=== PATIENT | female | born 1940 | race Caucasian/White ===

== ENCOUNTER 2017-08-24 03:50 | Inpatient (IN) | payer MEDICARE ==
[~2017-08-24 03:50] MED LIST: ATOR10TA15 PO; FLUT50SP EACH NARE; FOSA70TA PO; GABA100C4 PO; HYDR-3366 PO; HYDR12.57 PO; LEVO25TA4 PO; MACR100C2 PO; MAGN400T2 PO; MECL-62 PO; MELO7.5T27 PO; METF500T PO; METO25TA3 PO; MILN100 PO; NORT25CA PO; RAMI5CAP PO; TEMA15CA PO; ZANA4CAP PO
[2017-08-24] MEDS ORDERED: SODIUM CHLORIDE 0.9% FLUSH 10 ML FLUSH IV FLUSH PRN (05:30)
[2017-08-24] MEDS ORDERED: ACETAMINOPHEN/HYDROcodone 325 MG/10 MG TAB PO PRN (05:30)
[2017-08-24] MEDS: RESP: ALBUTEROL 2.5 MG/IPRATROPIUM 0.5 MG NEB (SCH) INH ×7 (08:00→21:11)
[2017-08-24] MEDS ORDERED: methylPREDNISolone SOD SUCC 40 MG/1 ML VIAL IV PUSH SCH (09:00)
[2017-08-24 11:10] VITALS: BP 138/77; PULSE 115; RESP 18; TEMP 98; O2SAT 96
[2017-08-24] MEDS: ENOXAPARIN SODIUM 40 MG/0.4 ML SYRINGE SQ SCH (12:04)
[2017-08-24] MEDS: SODIUM CHLORIDE 0.9% FLUSH 10 ML FLUSH IV FLUSH SCH ×2 (12:04→21:06)
[2017-08-24] MEDS ORDERED: MECLIZINE HCL 25 MG TAB PO PRN (13:15)
[2017-08-24] MEDS ORDERED: TEMAZEPAM 15 MG CAP PO PRN (13:15)
[2017-08-24] MEDS ORDERED: GLUCAGON 1 MG/ML VIAL OTHER PRN (13:15)
[2017-08-24] MEDS ORDERED: DEXTROSE 50% IN WATER 50 ML VIAL(D50) IV PUSH PRN (13:15)
--- NOTE | 2017-08-24 13:57 | HHI.HP ---
[facility] Primary Care Physician Edwin Camargo MD Admission Diagnosis Diagnoses: Chief Complaint: sob Travel History International Travel<30 Days: No Contact w/Intl Traveler <30 Da: No Traveled to Known Affected Are: No History of Present Illness This patient is a 76-year-old female with known history of COPD and coronary artery disease. Patient comes in with increased shortness of breath and increased work of breathing with chest tightness worse with breathing. She was hypoxemic in the emergency room 84-88%. She does not take alcohol at home. Patient did well with steroids and oxygen and nebulized bronchodilators it was recommended to be observed in the hospital for acute respiratory failure Review of Systems Constitutional: DENIES: Diaphoretic episodes, Fatigue, Fever, Weight gain, Weight loss, Chills, Dizziness, Change in appetite, Night Sweats Endocrine: DENIES: Abnorml menstrual pattern, Heat/cold intolerance, Polydipsia , Polyuria, Polyphagia Eyes: DENIES: Blurred vision, Diplopia, Eye inflammation, Eye pain, Vision loss , Photosensitivity, Double Vision Ears, nose, mouth, throat: DENIES: Tinnitus, Hearing loss, Vertigo, Nasal discharge, Oral lesions, Throat pain, Hoarseness, Ear Pain, Running Nose, Epistaxis, Sinus Pain, Toothache, Odynophagia Respiratory: COMPLAINS OF: Shortness of breath, DENIES: Apneas, Cough, Snoring , Wheezing, Hemoptysis, Sputum production Cardiovascular: DENIES: Chest pain, Palpitations, Syncope, Dyspnea on Exertion , PND, Lower Extremity Edema, Orthopnea, Claudication Gastrointestinal: DENIES: Abdominal pain, Black stools, Bloody stools, Constipation, Diarrhea, Nausea, Vomiting, Difficulty Swallowing, Anorexia Genitourinary: DENIES: Abnormal vaginal bleeding, Dysmenorrhea, Dyspareunia, Sexual dysfunction, Urinary frequency, Urinary incontinence, Urgency, Hematuria , Dysuria, Nocturia, Vaginal discharge Musculoskeletal: DENIES: Joint pain, Muscle aches, Stiffness, Joint Swelling, Back pain, Neck pain Integumentary: DENIES: Abnormal pigmentation, Pruritus, Rash, Nail changes, Breast masses, Breast skin changes, Nipple discharge Hematologic/lymphatic: DENIES: Bruising, Lymphadenopathy Immunologic/allergic: DENIES: Eczema, Urticaria Neurologic: DENIES: Abnormal gait, Headache, Localized weakness, Paresthesias, Seizures, Speech Problems, Tremor, Poor Balance Psychiatric: DENIES: Anxiety, Confusion, Mood changes, Depression, Hallucinations, Agitation, Suicidal Ideation, Homicidal Ideation, Delusions Except as stated in HPI: all other systems reviewed are Neg Past Family Social History Past Medical History COPD Coronary artery disease Diabetes Fibromyalgia Hyperlipidemia Recent urinary tract infection Past Surgical History Cardiac bypass Hysterectomy Reported Medications Reviewed in the EMR Allergies: Coded Allergies: baclofen (Verified Allergy, Severe, Nausea/Vomiting, 08/24/17) clonazepam (Verified Allergy, Severe, Psychosis, 08/24/17) oxycodone (Verified Allergy, Severe, Dizziness, 08/24/17) ropinirole (Verified Allergy, Severe, Nausea/Vomiting, 08/24/17) tramadol (Verified Allergy, Severe, Psychosis, 08/24/17) Active Ordered Medications Reviewed in the EMR Family History Hypertension Social History Patient never smoked No alcohol Lives alone Physical Exam Vital Signs Vital Signs Date Time Temp Pulse Resp B/P (MAP) Pulse Ox O2 Delivery O2 Flow Rate FiO2 08/24/17 11:10 98.0 115 18 138/77 (97) 96 Physical Exam GENERAL: This is a well-nourished, well-developed patient, complaining of shortness of breath SKIN: No rashes, ecchymoses or lesions. Cool and dry. HEAD: Atraumatic. Normocephalic. No temporal or scalp tenderness. EYES: Pupils equal round and reactive. Extraocular motions intact. No scleral icterus. No injection or drainage. ENT: Nose without bleeding, purulent drainage or septal hematoma. Throat without erythema, tonsillar hypertrophy or exudate. Uvula midline. Airway patent. NECK: Trachea midline. No JVD or lymphadenopathy. Supple, nontender, no meningeal signs. CARDIOVASCULAR: Regular rate and rhythm without murmurs, gallops, or rubs. RESPIRATORY: Decreased airflow bilaterally, no wheezes GASTROINTESTINAL: Abdomen soft, non-tender, nondistended. No hepato-splenomegaly , or palpable masses. No guarding. MUSCULOSKELETAL: Extremities without clubbing, cyanosis, or edema. No joint tenderness, effusion, or edema noted. No calf tenderness. Negative Homans sign bilaterally. NEUROLOGICAL: Awake and alert. Cranial nerves II through XII intact. Motor and sensory grossly within normal limits. Five out of 5 muscle strength in all muscle groups. Normal speech. Imaging Chest x-ray done at outside facility my review does show no acute cardio pulmonary disease CT of the chest shows emphysema Caprini VTE Risk Assessment Caprini VTE Risk Assessment: Mod/High Risk (score >= 2) Caprini Risk Assessment Model Point Value = 1 Point Value = 2 Point Value = 3 Point Value = 5 Age 41-60 Minor surgery BMI > 25 kg/m2 Swollen legs Varicose veins or History of unexplained or recurrent spontaneous Oral contraceptives or hormone replacement Sepsis (< 1 month) Serious lung disease, including pneumonia (< 1 month) Abnormal pulmonary function Acute myocardial infarction Congestive heart failure (< 1 month) History of inflammatory bowel disease Medical patient at bed rest Age 61-74 Arthroscopic surgery Major open surgery (> 45 min) Laparoscopic surgery (> 45 min) Malignancy Confined to bed (> 72 hours) Immobilizing plaster cast Central venous access Age >= 75 History of VTE Family history of VTE Factor V Leiden Prothrombin [id number] Lupus anticoagulant Anticardiolipin antibodies Elevated serum homocysteine Heparin-induced thrombocytopenia Other congenital or acquired thrombophilia Stroke (< 1 month) Elective arthroplasty Hip, pelvis, or leg fracture Acute spinal cord injury (< 1 month) Prophylaxis Regimen Total Risk Factor Score Risk Level Prophylaxis Regimen 0-1 Low Early ambulation 2 Moderate Order ONE of the following: *Sequential Compression Device (SCD) *Heparin 5000 units SQ BID 3-4 Higher Order ONE of the following medications: *Heparin 5000 units SQ TID *Enoxaparin/Lovenox 40 mg SQ daily (WT < 150 kg, CrCl > 30 mL/min) *Enoxaparin/Lovenox 30 mg SQ daily (WT < 150 kg, CrCl > 10-29 mL/min) *Enoxaparin/Lovenox 30 mg SQ BID (WT < 150 kg, CrCl > 30 mL/min) AND/OR *Sequential Compression Device (SCD) 5 or more Highest Order ONE of the following medications: *Heparin 5000 units SQ TID (Preferred with Epidurals) *Enoxaparin/Lovenox 40 mg SQ daily (WT < 150 kg, CrCl > 30 mL/min) *Enoxaparin/Lovenox 30 mg SQ daily (WT < 150 kg, CrCl > 10-29 mL/min) *Enoxaparin/Lovenox 30 mg SQ BID (WT < 150 kg, CrCl > 30 mL/min) AND *Sequential Compression Device (SCD) Assessment and Plan Problem List: (1) COPD (chronic obstructive pulmonary disease) ICD Code: J44.9 - Chronic obstructive pulmonary disease, unspecified Plan: with hypoxemic resp failure 88% and weakness and shortness of breath Continue with nebulized bronchodilators IV steroids Oxygen as needed (2) CAD (coronary artery disease) ICD Code: I25.10 - Atherosclerotic heart disease of [place] coronary artery without angina pectoris Plan: With a history of cardiac bypass Continue metoprolol and ramipril Code Status Full code Discussed Condition With Patient Caitlyn Zambrano MD Aug 24, 2017 13:57
[2017-08-24] MEDS: GABAPENTIN 100 MG CAP PO SCH ×2 (14:33→21:06)
[2017-08-24] MEDS: MILNACIPRAN 100 MG TAB PO SCH ×2 (14:49→21:07)
[2017-08-24] MEDS ORDERED: METOPROLOL TARTRATE 25 MG TAB PO ONE (15:00)
[2017-08-24] MEDS ORDERED: PILL SPLITTER OTHER PRN (15:00)
[2017-08-24 16:00] VITALS: BP 118/75; PULSE 106; RESP 16; TEMP 98.3; O2SAT 96
[2017-08-24] MEDS: ACETAMINOPHEN/HYDROcodone 325 MG/10 MG TAB PO SCH (17:54)
[2017-08-24] MEDS: INSULIN ASPART SUPPLEMENTAL SCALE SQ SCH ×2 (17:54→21:10)
[2017-08-24] MEDS: methylPREDNISolone SOD SUCC 40 MG/1 ML VIAL IV PUSH SCH (17:55)
--- NOTE | 2017-08-24 18:48 | MB ---
cc: Buster Gasca MD, Arjun D MD DATE: 08/24/[address] Zambrano. REASON FOR CONSULTATION: Shortness of breath and COPD. HISTORY OF PRESENT ILLNESS: Ms. Sun is a pleasant 76-year-old female with history of coronary artery disease, status post CABG, possible congestive heart failure, diabetes mellitus. She has been having shortness of breath for about a month or so, but recently her shortness of breath is getting worse. She did have some swelling in her legs. She did not have any fever or chills, no night sweats. No wheezing. She has no known COPD or emphysema. The patient was brought to the hospital. She had a workup done. Her chest x-ray shows no acute disease. CTA of the chest shows no pulmonary embolism. He has underlying emphysema, has a linear band of atelectasis. Her CBC showed WBC count 12.0, hemoglobin 11.1, hematocrit 34.3, MCV 92, platelets of 246. Sodium is 140, potassium 4.0, chloride 103, CO2 30, BUN 22, creatinine 0.9. BNP is 20. PAST MEDICAL HISTORY: Significant for history of coronary artery disease status post CABG, CHF, diabetes mellitus, fibromyalgia, history of hysterectomy. MEDICATIONS: She is currently taking hydrochlorothiazide 12.5 mg, Mobic 7.5 mg, levothyroxine 25 mcg, Flonase nasal spray, Macrobid 100 mg twice a day, Lopressor 12.5 mg twice a day, ramipril 5 mg twice a day, Pamelor 50 mg a day, Cooks 3 times a day, Solu-Medrol 40 mg q. 6 hours, Lovenox 40 mg a day, hydrocodone for pain. ALLERGIES: ALLERGIC TO BACLOFEN, KLONOPIN, OXYCODONE, AND TRAMADOL. SOCIAL HISTORY: She is a , was a homemaker. No history of smoking or alcohol abuse. FAMILY HISTORY: Has 2 children. REVIEW OF SYSTEMS: The patient lives alone. Normally she is up, around and active. No diagnosed COPD or emphysema. No seizure or epilepsy. No DVT or pulmonary embolus. PHYSICAL EXAMINATION: GENERAL: Elderly female not in any acute distress. VITAL SIGNS: Blood pressure 138/77, heart rate 115, respirations 18, temperature 98, saturation 96% on room air. HEENT: Unremarkable. NECK: Supple. JVD not raised. CHEST: Equal bilaterally, no rhonchi. CARDIOVASCULAR: S1, S2 normal. ABDOMEN: Benign. EXTREMITIES: Trace pedal edema. IMPRESSION: 1. Shortness of breath. She has no history of any smoking; however, CT scan shows underlying emphysema. 2. Coronary artery disease, status post coronary artery bypass grafting. 3. Anxiety disorder. 4. Diabetes mellitus. PLAN: We will get pulmonary function studies along with a bronchodilator. In the meantime, she is getting steroid with good response to it. She will use Flonase nasal spray, albuterol inhaler as needed. She will check the PFT. Further treatment will depend on the course in the hospital. THE cecelia garcia, Dr. Zambrano, for this consultation. MD YUAN Weller//madison , 02:55 PM , 05:55 PM [place]
[2017-08-24] MEDS: FLUTICASONE PROPIONATE 50 MCG/ACT 16 GM NASAL SPRAY EACH NARE SCH (21:06)
[2017-08-24] MEDS: RAMIPRIL 5 MG CAP PO SCH (21:07)
[2017-08-24] MEDS: ATORVASTATIN 10 MG TAB PO SCH (21:07)
[2017-08-24] MEDS: NORTRIPTYLINE HCL 25 MG CAP PO SCH (21:07)
[2017-08-24] MEDS: NITROFURANTOIN MONOHYD MACROCR 100 MG CAP PO SCH (21:07)
[2017-08-24] MEDS: METOPROLOL TARTRATE 25 MG TAB PO SCH (21:07)
[2017-08-24 21:11] VITALS: O2SAT 93
[2017-08-24 22:14] VITALS: BP 136/71; PULSE 97; RESP 18; O2SAT 95
[2017-08-25] VITALS (11 sets, daily range): BP systolic 115–156; BP diastolic 71–92; PULSE 81–108; RESP 16–18; TEMP 97.3–98.7; O2SAT 92–98
[2017-08-25] MEDS: methylPREDNISolone SOD SUCC 40 MG/1 ML VIAL IV PUSH SCH ×4 (00:24→16:56)
[2017-08-25] MEDS: RESP: ALBUTEROL 2.5 MG/IPRATROPIUM 0.5 MG NEB (SCH) INH ×7 (04:00→21:25)
[2017-08-25] MEDS: LEVOTHYROXINE SODIUM 25 MCG TAB PO SCH (06:03)
[2017-08-25 07:31] LABS: BASOPHIL % 0.2 % (0.0-2.0); EOSINOPHIL % 0.1 % (0.0-4.0); HEMOGLOBIN 10.8 GM/DL (11.6-15.3); LYMPH % 5.8 % (9.0-44.0); MEAN CELL VOLUME 88.2 FL (80.0-100.0); MEAN CORPUSCULAR HEMOGLOBIN 28.1 PG (27.0-34.0); MEAN CORPUSCULAR HGB CONC 31.9 % (32.0-36.0); MEAN PLATELET VOLUME 8.1 FL (7.0-11.0); MONOCYTE # 1.2 TH/MM3 (0-0.9); NEUT % 86.9 % (16.0-70.0); PLATELET COUNT 248 TH/MM3 (150-450); RED BLOOD COUNT 3.85 MIL/MM3 (4.00-5.30); WHITE BLOOD COUNT 17.2 TH/MM3 (4.0-11.0)
[2017-08-25 07:48] LABS: BICARBONATE 27.9 MEQ/L (21.0-32.0); CALCIUM 8.9 MG/DL (8.5-10.1)
[2017-08-25 07:52] LABS: CREATININE 0.81 MG/DL (0.50-1.00)
--- NOTE | 2017-08-25 08:40 | HHI.PR ---
Subjective Remarks Patient seen and evaluated today in follow-up for COPD exacerbation No further hypoxemia Patient resting comfortably Objective Vitals Vital Signs Date Time Temp Pulse Resp B/P (MAP) Pulse Ox O2 Delivery O2 Flow Rate FiO2 08/25/17 08:00 97.3 91 18 119/75 (90) 92 08/25/17 04:18 08/25/17 00:43 97.9 88 16 127/72 (90) 96 08/24/17 22:14 97 18 136/71 (92) 95 08/24/17 21:11 93 21 08/24/17 16:00 98.3 106 16 118/75 (89) 96 08/24/17 11:10 98.0 115 18 138/77 (97) 96 I/O 08/24/17 08/24/17 08/24/17 08/25/17 08/25/17 08/25/17 07:00 15:00 23:00 07:00 15:00 23:00 Intake Total 120 ml Balance 120 ml Intake Oral 120 ml # Voids 1 Result Diagram: 08/25/17 0715 08/25/17 0715 Objective Remarks GENERAL: This is a well-nourished, well-developed patient, in no apparent distress. CARDIOVASCULAR: Regular rate and rhythm without murmurs, gallops, or rubs. RESPIRATORY: Clear to auscultation. Breath sounds equal bilaterally. No wheezes , rales, or rhonchi. GASTROINTESTINAL: Abdomen soft, non-tender, nondistended. Normal active bowel sounds MUSCULOSKELETAL: Extremities without clubbing, cyanosis, or edema. NEURO: Alert & Oriented x4 to person, place, time, situation. Moves all ext x4 A/P Problem List: (1) COPD (chronic obstructive pulmonary disease) ICD Code: J44.9 - Chronic obstructive pulmonary disease, unspecified Plan: with hypoxemic resp failure 88% and weakness and shortness of breath Continue with nebulized bronchodilators IV steroids Oxygen as needed Pulmonary consultation appreciate Follow for PFTs (2) CAD (coronary artery disease) ICD Code: I25.10 - Atherosclerotic heart disease of [place] coronary artery without angina pectoris Plan: With a history of cardiac bypass Continue metoprolol and ramipril Discharge Planning Likely discharge in a.m. on oral antibiotics and oral steroid taper Caitlyn Zambrano MD Aug 25, 2017 08:40
[2017-08-25] MEDS: INSULIN ASPART SUPPLEMENTAL SCALE SQ SCH ×4 (08:48→22:14)
[2017-08-25] MEDS: NITROFURANTOIN MONOHYD MACROCR 100 MG CAP PO SCH ×2 (08:57→22:11)
[2017-08-25] MEDS: HYDROCHLOROTHIAZIDE 12.5 MG CAP PO SCH (08:58)
[2017-08-25] MEDS: GABAPENTIN 100 MG CAP PO SCH ×2 (08:58→22:12)
[2017-08-25] MEDS: ACETAMINOPHEN/HYDROcodone 325 MG/10 MG TAB PO SCH ×3 (08:58→16:56)
[2017-08-25] MEDS: ENOXAPARIN SODIUM 40 MG/0.4 ML SYRINGE SQ SCH (08:58)
[2017-08-25] MEDS: MELOXICAM 7.5 MG TAB PO SCH (08:58)
[2017-08-25] MEDS: RAMIPRIL 5 MG CAP PO SCH ×2 (08:59→22:09)
[2017-08-25] MEDS: SODIUM CHLORIDE 0.9% FLUSH 10 ML FLUSH IV FLUSH SCH ×2 (08:59→22:09)
[2017-08-25] MEDS: MILNACIPRAN 100 MG TAB PO SCH ×2 (08:59→22:09)
[2017-08-25] MEDS: FLUTICASONE PROPIONATE 50 MCG/ACT 16 GM NASAL SPRAY EACH NARE SCH ×2 (08:59→22:08)
[2017-08-25] MEDS: METOPROLOL TARTRATE 25 MG TAB PO SCH ×2 (09:00→22:11)
[2017-08-25] MEDS ORDERED: BENZOCAINE-MENTHOL (SUGAR FREE) 15 MG-3.6 MG LOZENGE BUCCAL PRN (17:00)
[2017-08-25] MEDS: ATORVASTATIN 10 MG TAB PO SCH (22:10)
[2017-08-25] MEDS: NORTRIPTYLINE HCL 25 MG CAP PO SCH (22:13)
[2017-08-25] MEDS: NITROGLYCERIN 0.4 MG SL 25 TABS/BTL SL PRN (23:48)
[2017-08-26] VITALS (9 sets, daily range): BP systolic 107–153; BP diastolic 58–80; PULSE 78–106; RESP 16–20; TEMP 97.1–99.5; O2SAT 18–98
[2017-08-26] MEDS: methylPREDNISolone SOD SUCC 40 MG/1 ML VIAL IV PUSH SCH ×4 (00:25→18:00)
[2017-08-26 00:50] LABS: TROPONIN I 0.29 NG/ML (0.02-0.05)
[2017-08-26] MEDS: RESP: ALBUTEROL 2.5 MG/IPRATROPIUM 0.5 MG NEB (SCH) INH ×3 (03:13→22:21)
[2017-08-26] MEDS: LEVOTHYROXINE SODIUM 25 MCG TAB PO SCH (06:12)
[2017-08-26] MEDS: INSULIN ASPART SUPPLEMENTAL SCALE SQ SCH ×4 (08:00→21:00)
[2017-08-26] MEDS ORDERED: RESP: ALBUTEROL 2.5 MG/IPRATROPIUM 0.5 MG NEB (PRN) NEB (08:00)
--- NOTE | 2017-08-26 08:04 | PD.CONS ---
HPI Consult Requested By Primary Care Physician Edwin Camargo MD History of Present Illness 76-year-old female with a past medical history of CAD s/p CABG 08, COPD/ emphysema, HLD, HTN, DM, hypothyroidism, fibromyalgia who presented for chest pain shortness of breath. The patient presented with chest tightness and wheezing and has been treated for COPD exacerbation. Yesterday during hospitalization she had 2 different episodes of chest pain. She states the pain lasted several minutes until it was relieved with nitroglycerin. She states that for the past 2 months she has been having intermittent episodes of chest pain with exertion. Initial troponin on ED evaluation was 0.02, after episodes of chest pain yesterday troponin was checked which was increased at 0.29. EKG at that time with no acute ST changes. (Cory Arreola) Review of Systems Negative except as stated in the HPI (Cory Arreola) Past Family Social History Allergies: Coded Allergies: baclofen (Verified Allergy, Severe, Nausea/Vomiting, 08/24/17) clonazepam (Verified Allergy, Severe, Psychosis, 08/24/17) oxycodone (Verified Allergy, Severe, Dizziness, 08/24/17) ropinirole (Verified Allergy, Severe, Nausea/Vomiting, 08/24/17) tramadol (Verified Allergy, Severe, Psychosis, 08/24/17) Past Medical History COPD Coronary artery disease Diabetes Fibromyalgia Hyperlipidemia Hypothyroidism Past Surgical History CABG 1999 Hysterectomy Reported Medications Reported Meds & Active Scripts Active Reported Macrobid (Nitrofurantoin Monoh/Nitrofur Macro) 100 Mg Cap 100 Mg PO BID Fosamax (Alendronate Sodium) 70 Mg Tab 70 Mg PO Q7D Magnesium Oxide 400 Mg Tab 400 Mg PO DAILY Metformin (Metformin HCl) 500 Mg Tab 500 Mg PO BIDPC [place] (Hydrocodone-Acetaminophen) 10-325 Mg Tab 1 Tab PO TID Fluticasone Nasal [place] 50 Mcg/Act Naspr 50 Mcg EACH NARE BID 50 mcg/spray Zanaflex (Tizanidine HCl) 4 Mg Cap 4 Mg PO HS Atorvastatin (Atorvastatin Calcium) 10 Mg Tab 10 Mg PO HS Nortriptyline (Nortriptyline HCl) 25 Mg Cap 50 Mg PO HS Hydrochlorothiazide 12.5 Mg Cap 12.5 Mg PO DAILY Meloxicam 7.5 Mg Tab 7.5 Mg PO DAILY Levothyroxine (Levothyroxine Sodium) 25 Mcg Tab 25 Mcg PO DAILY Meclizine (Meclizine HCl) 25 Mg Tab 25 Mg PO TID PRN Gabapentin 100 Mg Cap 100 Mg PO BID Savella (Milnacipran) 100 Mg Tab 100 Mg PO BID Metoprolol Tartrate 25 Mg Tab 12.5 Mg PO BID Ramipril 5 Mg Cap 5 Mg PO BID Temazepam 15 Mg Cap 15 Mg PO HS PRN Active Ordered Medications Current Medications Medications (Trade) Dose Ordered Sig/[place] Route Start Time Stop Time Status Last Admin (NS Flush) 2 ml BID IV FLUSH 08/24/17 09:00 08/25/17 22:09 (NS Flush) 2 ml UNSCH PRN IV FLUSH 08/24/17 05:30 (Lovenox Inj) 40 mg Q24H SQ 08/24/17 08:00 08/25/17 08:58 ([place] 10-325 Mg) 1 tab Q8H PRN PO 08/24/17 05:30 08/24/17 13:51 (D50w (Vial) Inj) 50 ml UNSCH PRN IV PUSH 08/24/17 13:15 (Glucagon Inj) 1 mg UNSCH PRN OTHER 08/24/17 13:15 (NovoLOG SUPPLEMENTAL SCALE) 1 ACHS SLIDING SCALE SQ 08/24/17 17:00 08/25/17 22:14 (Lipitor) 10 mg HS PO 08/24/17 21:00 08/25/17 22:10 (Flonase Valeriano Spr) 1 spray BID EACH NARE 08/24/17 21:00 08/25/17 22:08 (Neurontin) 100 mg BID PO 08/24/17 14:00 08/25/17 22:12 (Microzide) 12.5 mg DAILY PO 08/25/17 09:00 08/25/17 08:58 ([place] 10-325 Mg) 1 tab TID PO 08/24/17 18:00 08/25/17 16:56 (Synthroid) 25 mcg DAILY@0600 PO 08/25/17 06:00 08/26/17 06:12 (Antivert) 25 mg TID PRN PO 08/24/17 13:15 (Mobic) 7.5 mg DAILY PO 08/25/17 09:00 08/25/17 08:58 (Lopressor) 12.5 mg BID PO 08/24/17 21:00 08/25/17 22:11 (Savella) 100 mg BID PO 08/24/17 14:00 08/25/17 22:09 (Macrobid) 100 mg BID PO 08/24/17 21:00 08/25/17 22:11 (Pamelor) 50 mg HS PO 08/24/17 21:00 08/25/17 22:13 (Altace) 5 mg BID PO 08/24/17 21:00 08/25/17 22:09 (Restoril) 15 mg HS PRN PO 08/24/17 13:15 08/24/17 21:58 (Zanaflex) 4 mg HS PO 08/24/17 21:00 08/25/17 22:11 (Pill Splitter) 1 ea UNSCH PRN OTHER 08/24/17 15:00 (SoluMEDROL INJ) 40 mg Q6HR IV PUSH 08/24/17 18:00 08/26/17 06:13 (Cepacol Extra Paula (Sugar Free)) 1 lozenge Q2HR PRN BUCCAL 08/25/17 17:00 08/25/17 17:53 (Nitrostat Sl) 0.4 mg Q5M PRN SL 08/25/17 23:45 08/25/17 23:48 (Duoneb Neb) 1 ampule Q6HR WHILE AWAKE NEB INH 08/26/17 08:00 08/26/17 07:43 (Duoneb Neb) 1 ampule Q2HR NEB PRN NEB 08/26/17 08:00 Family History Hypertension Social History Patient never smoked No alcohol Lives alone (Cory Arreola) Physical Exam Vital Signs Vital Signs Date Time Temp Pulse Resp B/P (MAP) Pulse Ox O2 Delivery O2 Flow Rate FiO2 08/26/17 07:48 95 21 08/26/17 04:00 97.1 99 19 121/58 (79) 93 08/26/17 03:13 Nasal Cannula 2.00 08/26/17 00:29 78 107/66 (80) 97 08/25/17 23:51 81 116/76 (89) 95 08/25/17 23:12 105 156/92 (113) 96 08/25/17 21:26 94 21 08/25/17 20:00 98.5 108 18 131/79 (96) 92 08/25/17 20:00 107 08/25/17 16:00 98.7 85 18 124/83 (97) 92 08/25/17 14:59 94 21 08/25/17 13:23 18 08/25/17 12:00 98.3 89 18 115/71 (86) 92 08/25/17 10:12 98 08/25/17 08:00 97.3 91 18 119/75 (90) 92 Physical Exam GENERAL: Well-developed well-nourished. In no acute distress. NECK: No carotid bruits. No JVD. CARDIOVASCULAR: Currently receiving breathing treatment and slightly tachycardic. Regular rhythm. No murmur appreciated. RESPIRATORY: No accessory muscle use. Clear to auscultation. Breath sounds equal bilaterally. No wheezing. MUSCULOSKELETAL: No clubbing or cyanosis. Trace edema. NEUROLOGICAL: Awake and alert. Normal speech. Laboratory Laboratory Tests Test 08/25/17 23:49 08/26/17 07:00 Total Creatine Kinase 82 Troponin I 0.29 (Cory Arreola) Result Diagram: 08/25/17 0715 08/25/17 0715 Assessment and Plan Assessment and Plan 76-year-old female with a past medical history of CAD s/p CABG 08, COPD/ emphysema, HLD, HTN, DM, hypothyroidism, fibromyalgia who presented for chest pain shortness of breath. Episodes of chest pain during admission with increase in troponin to 0.29. NSTEMI: History of CAD with reported increasing episodes of angina over the past 2 months. Troponin has now increased to the intermediate range. We will plan on cardiac catheterization, transfer to the main hospital. Discussed Condition With Patient with daughter at bedside, Dr. Gabriel Argueta (Cory Arreola) Assessment and Plan [facility] - 3 Vz CAD. JON-LAD patent. SVG-OM1 occluded. PCI ELGIN distal LM/ proximal LCx bifurcation. asa plavix bb statin DC planning for tomorrow 2d echo (Minor Lucas MD) Cory Arreola Aug 26, 2017 08:04 Minor Lucas MD Aug 26, 2017 12:16
[2017-08-26 08:10] LABS: TROPONIN I 0.51 NG/ML (0.02-0.05)
[2017-08-26] MEDS: NITROGLYCERIN 0.4 MG SL 25 TABS/BTL SL PRN ×2 (09:21→09:32)
[2017-08-26] MEDS: MILNACIPRAN 100 MG TAB PO SCH ×2 (09:23→21:00)
[2017-08-26] MEDS: FLUTICASONE PROPIONATE 50 MCG/ACT 16 GM NASAL SPRAY EACH NARE SCH ×2 (09:23→21:00)
[2017-08-26] MEDS: ENOXAPARIN SODIUM 40 MG/0.4 ML SYRINGE SQ SCH (09:23)
[2017-08-26] MEDS: RAMIPRIL 5 MG CAP PO SCH ×2 (09:24→21:00)
[2017-08-26] MEDS: HYDROCHLOROTHIAZIDE 12.5 MG CAP PO SCH (09:24)
[2017-08-26] MEDS: NITROFURANTOIN MONOHYD MACROCR 100 MG CAP PO SCH ×2 (09:25→21:00)
[2017-08-26] MEDS: METOPROLOL TARTRATE 25 MG TAB PO SCH ×2 (09:25→21:00)
[2017-08-26] MEDS: MELOXICAM 7.5 MG TAB PO SCH (09:25)
[2017-08-26] MEDS: ACETAMINOPHEN/HYDROcodone 325 MG/10 MG TAB PO SCH ×3 (09:26→18:00)
[2017-08-26] MEDS: SODIUM CHLORIDE 0.9% FLUSH 10 ML FLUSH IV FLUSH SCH ×2 (09:26→21:00)
[2017-08-26] MEDS: GABAPENTIN 100 MG CAP PO SCH ×2 (09:26→21:00)
[2017-08-26] MEDS ORDERED: METOPROLOL TARTRATE 25 MG TAB PO ONE (09:30)
[2017-08-26] MEDS ORDERED: MIDAZOLAM HCL 2 MG/2 ML VIAL ONE ×2 (10:58→11:45)
[2017-08-26] MEDS ORDERED: HEPARIN-NS/PF FLUSH BAG 2,000 ML IV FLUSH ONE (10:58)
--- NOTE | 2017-08-26 11:23 | HHI.PR ---
Subjective Remarks Plan for heart cath today. Transfer to [facility] main for heart cath. SVT present when seen, complaining of chest pain. Objective Vital Signs Date Time Temp Pulse Resp B/P (MAP) Pulse Ox O2 Delivery O2 Flow Rate FiO2 08/26/17 08:00 97.8 98 20 153/80 (104) 98 08/26/17 08:00 106 08/26/17 07:48 95 21 08/26/17 04:00 97.1 99 19 121/58 (79) 93 08/26/17 03:13 Nasal Cannula 2.00 08/26/17 00:29 78 107/66 (80) 97 08/25/17 23:51 81 116/76 (89) 95 08/25/17 23:12 105 156/92 (113) 96 08/25/17 21:26 94 21 08/25/17 20:00 98.5 108 18 131/79 (96) 92 08/25/17 20:00 107 08/25/17 16:00 98.7 85 18 124/83 (97) 92 08/25/17 14:59 94 21 08/25/17 13:23 18 08/25/17 12:00 98.3 89 18 115/71 (86) 92 I/O 08/25/17 08/25/17 08/25/17 08/26/17 08/26/17 08/26/17 07:00 15:00 23:00 07:00 15:00 23:00 Intake Total 1200 ml Balance 1200 ml Intake Oral 1200 ml # Voids 5 3 Result Diagram: 08/25/1715 08/25/17 0715 Objective Remarks GENERAL: NAD, A&Ox3 HEAD: Normocephalic. NECK: Supple, trachea midline. No lymphadenopathy. EYES: No scleral icterus. No injection or drainage. CARDIOVASCULAR: Regular rate and rhythm without murmurs, gallops, or rubs. RESPIRATORY: Breath sounds equal bilaterally. No accessory muscle use. GASTROINTESTINAL: Abdomen soft, non-tender, nondistended. MUSCULOSKELETAL: No cyanosis, or edema. SKIN: Warm and dry. NEURO: No focal neurological deficitis. A/P Problem List: (1) CAD (coronary artery disease) ICD Code: I25.10 - Atherosclerotic heart disease of [place] coronary artery without angina pectoris (2) COPD (chronic obstructive pulmonary disease) ICD Code: J44.9 - Chronic obstructive pulmonary disease, unspecified Assessment and Plan 76-year-old female admitted secondary to respiratory distress and chest pain with a history of coronary artery disease Chest pain Coronary artery disease Cardiac bypass history Plan for heart catheter today Patient is transferred to the main Transfer service to [facility] providers Continue metoprolol COPD Improved Continue steroids Continue nebulized treatments Continue oxygen therapy as needed DVT prophylaxis SCDs Discharge Planning Pending findings of heart Holger Rios MD Aug 26, 2017 11:23
[2017-08-26] MEDS ORDERED: HEPARIN SODIUM - IV 10,000 UNITS/10 ML VIAL ONE (11:41)
[2017-08-26] MEDS ORDERED: CLOPIDOGREL 300 MG TAB ONE (12:09)
--- NOTE | 2017-08-26 12:18 | CATHPROC ---
[employer] HIS Report Study Information Study Number Admission Scheduled Start Study Start [id number] Aug 25 2017 7:14AM 08/26/2017 Aug 26 2017 11:07AM [place] Service Cardiac Catheterization Admit Source Facility Department Transfer in from another acute care facility [facility] - [employer] Physician and Clinical Staff Initial Minor Aguilera Beef Splitter Anand Erazo,RN Beef Splitter Anand Webster RN Recorder Tiki Clark,RT(R) Scrub Iris Peres,SOAKER SODA WORKER TECH2 Procedures Performed Procedure Location (Site) Vessel Name Coronary Angiograms LCA Left Coronary Coronary Angiograms RCA Right Coronary Coronary Angiograms JON Graft Left Coronary Drug Eluting Inflatio Lft Main Left Coronary L Heart Cath PTCA Lft Main Left Coronary PTCA ADD ON'S Wire insertion Fem Art (right) Femoral Art Equipment Time Therapist Physical Description Size Mfg Part Number Used/Scraped COPILOT VALVE, BLEEDBACK [id number] 11:41 [employer] Used CONTROL *[id number] TRANSDUCER, TRUWAVE [id number] 11:16 ADAM COSTA * Used W/STOCKCOCK *[id number] [id number] *[id number] [id number] *[id number] [id number] *[id number] *[id number] 11:16 MEDLINE INDUSTRIES PACK, CCL CUSTOM * Used *[id number] 11:16 MEDLINE PACER PEN, SKIN DUAL W/ RULER * Used *[id number] 11:49 MEDTRONIC BALLOON, 3.0 X 12MM EUPHORA 12MM Used *[id number] BALLOON, 3.75 X 12MM NC [id number] 11:55 MEDTRONIC 12MM Used EUPHORA *[id number] 12:03 MEDTRONIC STENT, 4.0 12MM HREMINIA 4.0 12MM Used *[id number] 11:42 [employer] MEDICAL 30 ADI INDEFLATOR Used *[id number] 11:45 [employer] MEDICAL SHEATH, FR6.5 PRELUDE 11CM FR 6.5 038ACT Used *[id number] 11:16 [employer] MEDICAL WIRE, 3MMJ .035 180CM 180CM Used *[id number] 11:32 [employer] MEDICAL WIRE, EXCHANGE 260CM 3MMJ 260CM Used *[id number] 11:16 NAMIC MANIFOLD, 4 PORT * Used *[id number] 11:16 NYCOMED OMNIPAQUE, 350 MG, 150ML 150ML [id number] Used 11:42 NYCOMED OMNIPAQUE, 350 MG, 150ML 150ML [id number] Used [id number] 11:16 LIMON MEDICAL BLANKET,WARM AIR CCL * Used *[id number] 11:16 TERUMO MEDICAL SHEATH, FR5 TERUMO (10CM) FR 5 Used *[id number] WIRE, RUNTHROUGH NS FLOPPY [id number] 11:41 TERUMO MEDICAL 180CM Used .014 180CM *[id number] Equipment Model, Serial, Lot Number and Expiration Data Description Model Number Serial Number Lot Number Expiration Date BALLOON, 3.0 X 12MM EUPHORA [id number] 01-24-2019 BALLOON, 3.75 X 12MM NC [id number] 11-14-2018 EUPHORA STENT, 4.0 12MM HERMINIA [id number] 12-20-2018 History: Current Medications Medication Dosage/Unit Route Frequency Last Date/Time Taken Synthroid HCTZ Statins (any) LOPRESSOR Glucophage History: Allergies Allergy Reaction oxycodone Dizziness clonazepam Psychosis baclofen Nausea/Vomiting tramadol Psychosis ropinirole Nausea/Vomiting History: Risk Factors Family History of Hypertension Dyslipidemia Previous SD Previous Heart Failure Premature CAD Yes Yes No No No Prior Valve Prior PCI Prior CABG Prior CABGDate Surgery No No Yes 06/03/2007 Cerebrovascular Peripheral Artery Chronic Lung On Dialysis Diabetes Diabetes Therapy Disease Disease Disease No No No No Yes Oral History: Symptoms/Diagnosis Selection Items Chest pain History: Stress Tests Stress or Imaging Studies Performed No History: Other Disease Selection Items CAD History: Other Current Smoker No Labs Hgb (g/dl) Hct (%) RBC (MIL/MM3) WBC (l/cumm) Platelets (thousands) 11.60-17.00 35.00-51.00 4.00-5.90 4.00-11.00 150.00-450.00 11.1 34.3 3.7 12 246 Glucose (mg/dl) BUN (mg/dl) Creatinine (mg/dl) BUN:Creatinine (1:x) 74.00-106.00 7.00-18.00 0.50-1.30 10.00-20.00 102 26 0.9 28.9 Na (meq/l) K (meq/l) Cl (meq/l) CO2 (mmol/L) Ca (mg/dl) 136.00-145.00 3.50-5.10 98.00-107.00 21.00-32.00 8.50-10.10 140 4.7 103 30 9.1 PT (sec) PTT (sec) INR (PTT:PT) 9.80-11.60 24.30-30.10 0.90-1.10 10.1 24.7 1 CPK (u/l) CPK-MB (ng/ML) 26.00-308.00 0.50-3.60 120 1.8 Medication Medication Total Dose (Bolus/Oral) Medication Total Dosage/Unit 1% XYLOCAINE 20 mL FENTANYL 150 mcg HEPARIN 5000 units PLAVIX 600 mg VERSED 2 mg Medications (Bolus/Oral) Medication Time Given Dosage/Unit Administered By Reason VERSED 08/26/2017 11:18:52 AM 1 mg Eleanor, Anand 1 mg VERSED given in lab by Anand Webster RN via Peripheral IV. FENTANYL 08/26/2017 11:19:14 AM 50 mcg Eleanor, Anand 50 mcg FENTANYL given in lab by Anand Webster RN via Peripheral IV. 1% XYLOCAINE 08/26/2017 11:22:55 AM 20 mL Minor Lucas 20 mL 1% XYLOCAINE given in lab by Minor Lucas in Right Groin via Subcutaneous. HEPARIN 08/26/2017 11:44:39 AM 5000 units Eleanor, Anand 5000 units HEPARIN given in lab by Anand Webster RN in Right Antecubital via Peripheral IV. VERSED 08/26/2017 11:47:37 AM 1 mg Eleanor, Anand 1 mg VERSED given in lab by Anand Webster RN via Peripheral IV. FENTANYL 08/26/2017 11:47:41 AM 50 mcg Eleanor, Anand 50 mcg FENTANYL given in lab by Anand Webster RN via Peripheral IV. FENTANYL 08/26/2017 11:58:10 AM 50 mcg Eleanor, Anand 50 mcg FENTANYL given in lab by Anand Webster RN via Peripheral IV. PLAVIX 08/26/2017 12:11:02 PM 600 mg Burfield, Anand 600 mg PLAVIX given in lab by Anand Erazo, RN via Oral. Medication (Drip) Medication Time Given Dosage/Unit Concentration/Unit Diluent (ml) Solution IV Solutions 08/26/2017 11:17:10 AM 0 mL (IV) 500 NaCl .9 Patient arrived on IV Solutions in Right Antecubital via Peripheral IV. Pump/Drip Flow = 20 ml/hr usi ng NaCl .9. Initial Case Assessment Cardiovascular HR Rhythm NIBP Chest Pain 102 REG 153/90 0 Edema Present Skin color Skin None Normal Warm Circulatory - Right Pulses Dorsalis Pedis Femoral 2 2 Scale (0,1,2,3,4,d) Circulatory - Left Pulses Dorsalis Pedis Femoral 2 2 Scale (0,1,2,3,4,d) Circulatory - Lower Extremities Color Lower Right Color Lower Left Normal Normal Neurological State Oriented to time-place- Alert Moves all extremities person Respiration - General Respiration Rate SpO2 (%) (B/min) 12 98 Final Case Assessment Cardiovascular HR Rhythm NIBP Chest Pain 98 REG 133/79 0 Edema Present Skin color Skin None Normal Warm Circulatory - Right Pulses Dorsalis Pedis Femoral 2 2 Scale (0,1,2,3,4,d) Circulatory - Left Pulses Dorsalis Pedis Femoral 2 2 Scale (0,1,2,3,4,d) Circulatory - Lower Extremities Color Lower Right Color Lower Left Normal Normal Neurological State Oriented to time-place- Alert Moves all extremities person Respiration - General Respiration Rate SpO2 (%) (B/min) 9 95 Chronological Log Time Study Chronological Log 10:55:24 Patient arrived via Bed. 10:56:00 Patient Name, D.O.B, / Armband Verified By R.N. 10:57:38 Consent signed by the physician and the patient and verified by the [employer] staff. 11:07:43 Pre-op and post- op instructions given; patient acknowledges understanding of instructions. 11:07:44 Verbal Stimulation=2 Physical Stimulation=2 Airway=2 Respiration=2 TOTAL=8. (0=absent, 1=li mited, 2=present) 11:07:47 Patient has been NPO for Less than 6Hrs. 11:07:48 Skin Breakdown-NONE 11:08:21 Reference ECG taken Vitals capture started with the following parameters, Patient=Adult, Interval=5 min, Initial Pr vmacpo=358 mmHg, 11:08:22 Deflation Rate=5 mmHg, Cuff placed on Right Arm 11:09:34 QU=238 bpm, ZMTW=178/89 mmhg, SpO2=98.0 %, Resp=29 B/min, Pain=0, Prsoper=10, Johnson=2 11:13:55 Pressure channel 1 zeroed. 11:14:05 EY=468 bpm, FFXK=561/90 mmhg, SpO2=97.0 %, Resp=12 B/min, Pain=0, Prosper=10, Johnson=2 11:16:51 A # 20 IV was noted in the Antecubital (right). Grade = 0 11:17:02 A # 20 IV was noted in the Antecubital (left). Grade = 0 11:17:10 Patient arrived on IV Solutions in Right Antecubital via Peripheral IV. Pump/Drip Flow = 20 ml/hr using NaCl .9. 11:17:25 History and physical on the chart or being dictated. Assessment: Initial Case, SW=062 BPM, Rhythm=REG, XDTO=563/90 mmhg, Chest Pain=0, Edema=None, Color=Normal, Skin = Warm Right Pulses: Nikita Ped=2, Femoral=2 Left Pulses: Nikita Ped=2, Femoral=2 11:17:25 Lower Right Extremities: Color=Normal Lower Left Extremities: Color=Normal Neurological: State=Alert, Ox3, SIMS Respiration: Resp=12 B/min, SpO2=98 % 11:18:10 Bilateral groins prepped with 2% chlorhexidine, and draped after a 3 minute waiting time. 11:18:15 MD arrived. 11:18:52 1 mg VERSED given in lab by Anand Webster, RN via Peripheral IV. 11:19:06 TY=688 bpm, TVRU=598/84 mmhg, SpO2=98.0 %, Resp=14 B/min, Pain=0, Prosper=10, Johnson=2 11:19:14 50 mcg FENTANYL given in lab by Anand Webster, RN via Peripheral IV. Time Out. Correct patient, correct procedure, correct physician, power injector not loaded with contrast with surgical 11:19:31 team present. Time Out Concurred by MD and individual staff in procedure. 11:20:20 Case Start 11:20:22 Verbal Stimulation=2 Physical Stimulation=2 Airway=2 Respiration=2 TOTAL=8. (0=absent, 1=li mited, 2=present) 11:22:55 20 mL 1% XYLOCAINE given in lab by Minor Lucas in Right Groin via Subcutaneous. 11:24:03 HR=98 bpm, ZRBR=639/75 mmhg, SpO2=92.0 %, Resp=9 B/min, Pain=0, Prosper=10, Johnson=2 A JR 4.0 INFINITI CATHETER FR 6 was advanced over a wire. OMNIPAQUE, 350 MG, 150ML 150ML was us ed for 11:27:47 injections. Recorded Pressure: LV, HR=98, Condition=Condition 1 11:28:08 (Left Ventricle) LV 143/-2/13 Recorded Pressure: LV, Ao, HR=99, Condition=Condition 1 11:28:28 (Left Ventricle) LV 138/-2/15, (Aorta) Ao 120/59/87 11:29:01 The RCA was injected and visualized at various angles. OMNIPAQUE, 350 MG, 150ML 150ML used . 11:29:06 HR=98 bpm, UDFU=591/75 mmhg, SpO2=90.0 %, Resp=13 B/min, Pain=0, Prosper=10, Johnson=2 After removing the current catheter a SOWMYA INFINITI CATHETER FR 6 was advanced over a WIRE, EXCH LORENE 260CM 11:31:49 3MMJ 260CM. 11:34:03 PB=433 bpm, OSRO=005/87 mmhg, SpO2=93.0 %, Resp=19 B/min, Pain=0, Prosper=10, Johnson=2 11:35:44 The JON Graft was injected and visualized at various angles. OMNIPAQUE, 350 MG, 150ML 150M L used. After removing the current catheter a JL 4.0 INFINITI CATHETER FR 6 was advanced over a WIRE, E XCHANGE 260CM 11:36:49 3MMJ 260CM. 11:39:04 CG=959 bpm, DPMP=474/83 mmhg, SpO2=93.0 %, Resp=18 B/min, Pain=0, Prosper=10, Johnson=2 11:39:07 Catheter was removed 11:41:52 OMNIPAQUE, 350 MG, 150ML 150ML and 30 ADI INDEFLATOR added. 11:44:05 DS=743 bpm, XOXR=406/84 mmhg, SpO2=92.0 %, Resp=21 B/min, Pain=0, Prosper=10, Johnson=2 A SHEATH, FR6.5 PRELUDE 11CM FR 6.5 was exchanged in the Fem Art (right). This was necessary in order to 11:44:15 accomodate a larger catheter. 11:44:39 5000 units HEPARIN given in lab by Anand Webster RN in Right Antecubital via Peripheral IV. A XB 3.5 GUIDE CATHETER FR 6 was advanced over a wire. OMNIPAQUE, 350 MG, 150ML 150ML was used for 11:45:28 injections. 11:47:18 A WIRE, RUNTHROUGH NS FLOPPY .014 180CM 180CM was inserted via Fem Art (right). 11:47:37 1 mg VERSED given in lab by Anand Webster RN via Peripheral IV. 11:47:41 50 mcg FENTANYL given in lab by Anand Webster RN via Peripheral IV. 11:48:58 Interventional wire has crossed the lesion A BALLOON, 3.0 X 12MM EUPHORA 12MM was inserted over WIRE, RUNTHROUGH NS FLOPPY .014 180CM 180C M via 11:49:04 the Lft Main. 11:49:06 HR=99 bpm, VGOZ=954/75 mmhg, SpO2=93.0 %, Resp=22 B/min, Pain=0, Prosper=10, Johnson=2 A BALLOON, 3.0 X 12MM EUPHORA 12MM over a WIRE, RUNTHROUGH NS FLOPPY .014 180CM 180CM in the Lf t Main 11:49:27 was inflated using a 30 ADI INDEFLATOR at 15 adi for 30 sec. 11:51:47 The LCA was injected and visualized at various angles. OMNIPAQUE, 350 MG, 150ML 150ML used . 11:53:51 Balloon Removed. 11:54:05 HR=99 bpm, JKYR=365/80 mmhg, SpO2=93.0 %, Resp=16 B/min, Pain=0, Prosper=10, Johnson=2 A BALLOON, 3.75 X 12MM NC EUPHORA 12MM was inserted over WIRE, RUNTHROUGH NS FLOPPY .014 180CM 11:55:08 180CM via the Lft Main. A BALLOON, 3.75 X 12MM NC EUPHORA 12MM over a WIRE, RUNTHROUGH NS FLOPPY .014 180CM 180CM in th e [facility] 11:56:45 Main was inflated using a 30 ADI INDEFLATOR at 16 adi for 20 sec. 11:58:10 50 mcg FENTANYL given in lab by Anand Webster RN via Peripheral IV. 11:59:04 AEZY=683/70 mmhg, Resp=15 B/min, Pain=0, Prosper=10, Johnson=2 11:59:10 The LCA was injected and visualized at various angles. OMNIPAQUE, 350 MG, 150ML 150ML used . 11:59:20 Balloon Removed. 12:02:00 ACT (Normal Range 90-180) = 257 A STENT, 4.0 12MM HERMINIA 4.0 12MM was advanced through a XB 3.5 GUIDE CATHETER FR 6 over a WIRE, 12:02:46 RUNTHROUGH NS FLOPPY .014 180CM 180CM. A STENT, 4.0 12MM HERMINIA 4.0 12MM was deployed using a 30 ADI INDEFLATOR at 14 atmospheres for 20 seconds in 12:03:26 the Lft Main. 12:04:32 AH=125 bpm, KWKP=388/78 mmhg, SpO2=89.0 %, Resp=13 B/min, Pain=0, Prosper=10, Johnson=2 12:04:49 The LCA was injected and visualized at various angles. OMNIPAQUE, 350 MG, 150ML 150ML used . 12:05:41 Delivery device removed 12:09:01 Case End Assessment: Final Case, HR=98 BPM, Rhythm=REG, UTIS=805/79 mmhg, Chest Pain=0, Edema=None, Anderson r=Normal, Skin = Warm Right Pulses: Nikita Ped=2, Femoral=2 Left Pulses: Nikita Ped=2, Femoral=2 12:09:05 Lower Right Extremities: Color=Normal Lower Left Extremities: Color=Normal Neurological: State=Alert, Ox3, SIMS Respiration: Resp=9 B/min, SpO2=95 % 12:09:08 HR=99 bpm, ILYB=810/79 mmhg, SpO2=93.0 %, Resp=10 B/min, Pain=0, Prosper=10, Johnson=2 12:09:36 Catheter(s) removed without difficulty 12:09:40 In the Fem Art (right) the SHEATH, FR6.5 PRELUDE 11CM FR 6.[address] by Iris Peres, SOAKER SODA WORKER TECH2. 12:09:46 Sterile dressing applied to site 12:09:47 No case complications noted. 12:09:48 Cine recording checked. 12:09:51 Bedside Report will be given. 12:09:51 Implantable Device card placed in patient's chart. 12:09:54 Verbal Stimulation=2 Physical Stimulation=2 Airway=2 Respiration=2 TOTAL=8. (0=absent, 1=li mited, 2=present) 12:10:04 A Left Heart Cath was performed. 12:10:09 Clinical correlaton risk stratification. 12:11:02 600 mg PLAVIX given in lab by Anand Erazo, RN via Oral. 12:13:43 Vitals capture stopped. End Study - Contrast Media Used In Study Contrast Total Opened (mL) Total Used (mL) Total Wasted (mL) Omnipaque 80 80 0 End Study - Maximum Contrast Load Max Contrast Load (mL) 404.0 End Study - Radiation Exposure Fluoro Time (minutes) 9.5 End Study - Patient Disposition Complications Transferred To Interventional Outcome No [employer] Holding successful
[2017-08-26] MEDS ORDERED: SODIUM CHLOR 0.9% 1000 ML INJ 1,000 ML IV SCH (12:20)
[2017-08-26] MEDS ORDERED: BACITRACIN OINT 0.9 GM PKT TOP ONE (12:30)
[2017-08-26] MEDS ORDERED: ONDANSETRON HCL 4 MG/2 ML VIAL IV PUSH PRN (12:30)
[2017-08-26] MEDS ORDERED: LIDOCAINE HCL 1% 50 ML VIAL INFIL PRN (12:30)
[2017-08-26] MEDS ORDERED: SODIUM CHLOR 0.9% 250 ML INJ 250 ML IV PRN (12:30)
[2017-08-26] MEDS ORDERED: MISC INFORMATION XX ONE (12:30)
[2017-08-26] MEDS ORDERED: ATROPINE SULFATE 1 MG/ML VIAL IV PUSH PRN (12:30)
[2017-08-26] MEDS ORDERED: LORazepam 2 MG/ML VIAL IV PUSH PRN (12:30)
--- NOTE | 2017-08-26 12:56 | MA ---
cc: Minor Lucas MD DATE: 08/26/2017 INDICATION: Non-ST elevation myocardial infarction. PROCEDURE PERFORMED: 1. Fluoroscopy and interpretation. 2. Coronary angiography. 3. Left heart catheterization. 4. Coronary bypass graft angiography. 5. Percutaneous coronary intervention of the distal left main/proximal left circumflex coronary bifurcation with drug-eluting stent. METHOD: The risks, benefits, and alternatives discussed with the patient. The patient understood and consented. The patient was brought to the catheterization lab and placed on the catheterization table. The right groin was prepped and draped in a sterile fashion. The right groin was anesthetized with 2% lidocaine. The right common femoral artery was cannulated and a 5-Congolese 11 cm sheath was placed without difficulty. LEFT HEART CATHETERIZATION: Intraventricular hemodynamics measures 120/20 12 mmHg. CORONARY ANGIOGRAPHY: 1. Distal left main coronary has a 95% stenosis. 2. Left anterior descending coronary is 100% occluded proximally. 3. Proximal left circumflex has an ostial 95% stenosis. There is a 30% stenosis in the mid segment leading to the first obtuse marginal branch. Left circumflex appears to be a somewhat codominant vessel giving rise to a left-sided posterior descending branch number. The left circumflex is a codominant giving rise to a large left-sided posterior descending branch. 4. Right coronary artery is very small caliber size and does give rise to what appears to be a very small posterior descending branch, but it is 99% subtotally occluded with CHRISTIANE 2 flow, less than 2 mm, caliber size vessel. CORONARY BYPASS GRAFT ANGIOGRAPHY: 1. Left internal mammary, although tortuous is patent to the left anterior descending. 2. The saphenous vein graft to what appears to be the obtuse marginal branch is occluded. PERCUTANEOUS INTERVENTION: The left main coronary was selectively engaged with a 6-Congolese XB 3.5 guide catheter. A 0.014 inch 180 cm [employer] Runthrough wire was navigated down the distal posterior descending branch on the left side. A 3.0 x 12 mm RX [employer] balloon was deployed in the distal left main, proximal circumflex to 14 atmospheres. Repeat angiography still showed severe residual stenosis. A 3.75 x 12 mm RX Nu-Med Plusphora balloon was then navigated across the distal left main, proximal left circumflex bifurcation deployed to 16 atmospheres. Repeat angiography showed still severe residual stenosis. There was mild post-aneurysmal dilatation, but did not appeared to be significant. A 4.0 x 12 mm RX Resolute Williams stent was then deployed in the distal left circumflex, proximal left circumflex coronary artery. Repeat angiography showed a good stent apposition CHRISTIANE 3 flow and no residual stenosis. The wire was removed, guide catheter removed, sheath was sewn into place to be removed with manual hemostasis. Heparin was administered throughout the entire procedure for appropriate anticoagulation. CONCLUSIONS: 1. Severe distal left main, proximal left circumflex coronary stenosis. 2. Successful percutaneous intervention with drug-eluting stent to the distal left main/proximal left circumflex coronary artery. 3. One of two coronary bypass grafts were patent with the saphenous vein graft to the obtuse marginal branch occluded and the JON to LAD patent. 4. Severe 3-vessel [place] coronary artery disease. 5. Normal left-sided filling pressure. PLAN: The patient will be given gentle hydration. Given the he recent CTA of the chest now followed by 80 mL of contrast with this procedure, we will have to make sure she does not develop nephropathy. We will hydrate her gently. She will need to be on aspirin, Plavix, statin, and beta-hui therapy. We will followup on 2-D echocardiogram. Hopefully if she does well, she can be discharged tomorrow. Minor Lucas MD THI/DL , 12:27 PM , 12:55 PM
[2017-08-26] MEDS ORDERED: CLOPIDOGREL 300 MG TAB PO ONE (13:00)
[2017-08-26] MEDS ORDERED: IOHEXOL 350 MG/ML 50 ML BTL (for Cath Lab) OTHER ONE (13:18)
[2017-08-26] MEDS: NORTRIPTYLINE HCL 25 MG CAP PO SCH (21:00)
[2017-08-26] MEDS ORDERED: ATORVASTATIN 10 MG TAB PO SCH (21:00)
--- NOTE | 2017-08-26 21:05 | HHI.PR ---
Subjective Remarks 76 YOWF with CAD,S/P CABG, SOB Had cardiac cath, and intevention Breathing better On RA Objective Vital Signs Vital Signs Date Time Temp Pulse Resp B/P (MAP) Pulse Ox O2 Delivery O2 Flow Rate FiO2 08/26/17 12:40 97 Room Air 08/26/17 08:00 97.8 98 20 153/80 (104) 98 08/26/17 08:00 106 08/26/17 07:48 95 21 08/26/17 04:00 97.1 99 19 121/58 (79) 93 08/26/17 03:13 Nasal Cannula 2.00 08/26/17 00:29 78 107/66 (80) 97 08/25/17 23:51 81 116/76 (89) 95 08/25/17 23:12 105 156/92 (113) 96 08/25/17 21:26 94 21 I/O 08/25/17 08/25/17 08/25/17 08/26/17 08/26/17 08/26/17 07:00 15:00 23:00 07:00 15:00 23:00 Intake Total 1200 ml Balance 1200 ml Intake Oral 1200 ml # Voids 5 3 Result Diagram: 08/25/17 0715 08/25/17 0715 Objective Remarks GENERAL: Elderly WF,NAD SKIN: Warm and dry. HEAD: Normocephalic. EYES: No scleral icterus. No injection or drainage. NECK: Supple, trachea midline. No JVD or lymphadenopathy. CARDIOVASCULAR: Regular rate and rhythm without murmurs, gallops, or rubs. RESPIRATORY: Breath sounds equal bilaterally. No accessory muscle use. GASTROINTESTINAL: Abdomen soft, non-tender, nondistended. MUSCULOSKELETAL: No cyanosis, or edema. BACK: Nontender without obvious deformity. No CVA tenderness. A/P Assessment and Plan IMPRESSION: 1. Shortness of breath. She has no history of any smoking; however, CT scan shows underlying emphysema. 2. Coronary artery disease, status post coronary artery bypass grafting. 3. Anxiety disorder. 4. Diabetes mellitus. PLAN: Check PFT Plavix 75 mg daily Stable on RA DW pt and her daughter at [facility]. Buster Gasca MD Aug 26, 2017 21:05
[2017-08-26 23:42] LABS: TROPONIN I 0.74 NG/ML (0.02-0.05)
[2017-08-27] VITALS (21 sets, daily range): BP systolic 104–143; BP diastolic 59–73; PULSE 74–112; RESP 16; TEMP 97.3–97.7; O2SAT 94–95
--- NOTE | 2017-08-27 00:13 | EKG ---
Date Performed: 08/26/2017 Time Performed: 06:05:11 PTAGE: 76 years EKG: Sinus rhythm MARKED LEFT AXIS DEVIATION PATTERN CONSISTENT WITH PULMONARY DISEASE LEFT VENTRICULAR HYPERTROPHY AN D ST-T CHANGE ABNORMAL ECG PREVIOUS TRACING : 08/25/2017 23.45 DOCTOR: Josefa White Interpretating Date/Time 08/27/2017 00:05:44
--- NOTE | 2017-08-27 00:18 | EKG ---
Date Performed: 08/25/2017 Time Performed: 23:45:37 PTAGE: 76 years EKG: Sinus rhythm WITH SINUS ARRHYTHMIA MARKED LEFT AXIS DEVIATION PATTERN CONSISTENT WITH PULMONARY DISEASE MODERATE VOLTAGE CRITERIA FOR LVH, CONSIDER NORMAL VARIANT MINIMAL ST DEPRESSION ABNORMAL ECG NO PREVIOUS TRACING DOCTOR: Josefa White Interpretating Date/Time 08/27/2017 00:09:02
[2017-08-27 05:11] LABS: AUTOMATED NEUTROPHIL # 13.1 TH/MM3 (1.8-7.7); BASOPHIL % 0.1 % (0.0-2.0); HEMATOCRIT 28.7 % (35.0-46.0); HEMOGLOBIN 9.4 GM/DL (11.6-15.3); LYMPH % 8.5 % (9.0-44.0); LYMPHOCYTE # 1.3 TH/MM3 (1.0-4.8); MEAN CORPUSCULAR HEMOGLOBIN 28.9 PG (27.0-34.0); MEAN CORPUSCULAR HGB CONC 32.8 % (32.0-36.0); MEAN PLATELET VOLUME 8.7 FL (7.0-11.0); MONO % 5.8 % (0.0-8.0); MONOCYTE # 0.9 TH/MM3 (0-0.9); NEUT % 85.6 % (16.0-70.0); PLATELET COUNT 245 TH/MM3 (150-450); RED BLOOD COUNT 3.26 MIL/MM3 (4.00-5.30); RED CELL DISTRIBUTION WIDTH 13.8 % (11.6-17.2); WHITE BLOOD COUNT 15.3 TH/MM3 (4.0-11.0)
[2017-08-27 05:38] LABS: BICARBONATE 25.6 MEQ/L (21.0-32.0); CALCIUM 8.6 MG/DL (8.5-10.1); CREATININE 0.88 MG/DL (0.50-1.00)
[2017-08-27 05:43] LABS: CHOLESTEROL/ HDL RATIO 3.63 RATIO; HDL CHOLESTEROL 49.3 MG/DL (40.0-60.0)
[2017-08-27 06:14] LABS: TROPONIN I 0.66 NG/ML (0.02-0.05)
[2017-08-27] MEDS: methylPREDNISolone SOD SUCC 40 MG/1 ML VIAL IV PUSH SCH ×3 (06:19→12:34)
[2017-08-27] MEDS: LEVOTHYROXINE SODIUM 25 MCG TAB PO SCH (06:20)
--- NOTE | 2017-08-27 08:11 | PD.CARD.PN ---
Subjective Subjective Remarks no complaints breathing at baseline Objective Medications Current Medications Medications (Trade) Dose Ordered Sig/Galen Route Start Time Stop Time Status Last Admin (NS Flush) 2 ml BID IV FLUSH 08/24/17 09:00 08/26/17 21:00 (NS Flush) 2 ml UNSCH PRN IV FLUSH 08/24/17 05:30 (Duncan 10-325 Mg) 1 tab Q8H PRN PO 08/24/17 05:30 08/24/17 13:51 (D50w (Vial) Inj) 50 ml UNSCH PRN IV PUSH 08/24/17 13:15 (Glucagon Inj) 1 mg UNSCH PRN OTHER 08/24/17 13:15 (NovoLOG SUPPLEMENTAL SCALE) 1 ACHS SLIDING SCALE SQ 08/24/17 17:00 08/26/17 21:00 (Flonase Valeriano Spr) 1 spray BID EACH NARE 08/24/17 21:00 08/26/17 21:00 (Neurontin) 100 mg BID PO 08/24/17 14:00 08/26/17 21:00 (Microzide) 12.5 mg DAILY PO 08/25/17 09:00 08/26/17 09:24 (Duncan 10-325 Mg) 1 tab TID PO 08/24/17 18:00 08/26/17 18:00 (Synthroid) 25 mcg DAILY@0600 PO 08/25/17 06:00 08/27/17 06:20 (Antivert) 25 mg TID PRN PO 08/24/17 13:15 (Mobic) 7.5 mg DAILY PO 08/25/17 09:00 08/26/17 09:25 (Lopressor) 12.5 mg BID PO 08/24/17 21:00 08/26/17 21:00 (Savella) 100 mg BID PO 08/24/17 14:00 08/26/17 21:00 (Macrobid) 100 mg BID PO 08/24/17 21:00 08/26/17 21:00 (Pamelor) 50 mg HS PO 08/24/17 21:00 08/26/17 21:00 (Altace) 5 mg BID PO 08/24/17 21:00 08/26/17 21:00 (Restoril) 15 mg HS PRN PO 08/24/17 13:15 08/24/17 21:58 (Zanaflex) 4 mg HS PO 08/24/17 21:00 08/26/17 21:00 (Pill Splitter) 1 ea UNSCH PRN OTHER 08/24/17 15:00 (SoluMEDROL INJ) 40 mg Q6HR IV PUSH 08/24/17 18:00 08/27/17 06:19 (Cepacol Extra Paula (Sugar Free)) 1 lozenge Q2HR PRN BUCCAL 08/25/17 17:00 08/25/17 17:53 (Nitrostat Sl) 0.4 mg Q5M PRN SL 08/25/17 23:45 08/26/17 09:32 (Duoneb Neb) 1 ampule Q6HR WHILE AWAKE NEB INH 08/26/17 08:00 08/26/17 22:21 (Duoneb Neb) 1 ampule Q2HR NEB PRN NEB 08/26/17 08:00 (Plavix) 75 mg DAILY PO 08/27/17 09:00 (Ativan Inj) 0.5 mg UNSCH PRN IV PUSH 08/26/17 12:30 08/27/17 12:29 (Atropine Inj) 0.5 mg UNSCH PRN IV PUSH 08/26/17 12:30 Sodium Chloride 250 ml @ 500 mls/hr ONCE PRN IV 08/26/17 12:30 08/27/17 12:29 (Zofran Inj) 4 mg Q4H PRN IV PUSH 08/26/17 12:30 (Xylocaine 1% Inj (50 ml)) 10 ml UNSCH PRN INFIL 08/26/17 12:30 08/27/17 12:29 (Lipitor) 40 mg HS PO 08/26/17 21:00 08/26/17 21:00 (Ecotrin Ec) 81 mg DAILY PO 08/27/17 09:00 UNV Vital Signs / I&O Vital Signs Date Time Temp Pulse Resp B/P (MAP) Pulse Ox O2 Delivery O2 Flow Rate FiO2 08/27/17 07:21 97.6 90 16 128/73 (91) 95 08/27/17 06:00 94 08/27/17 05:51 97.7 90 16 143/62 (89) 94 08/27/17 05:00 94 08/27/17 04:00 92 08/27/17 03:12 90 08/27/17 02:00 86 08/27/17 01:00 78 08/27/17 00:00 84 08/26/17 23:00 98.7 97 16 126/67 (86) 96 08/26/17 23:00 96 08/26/17 22:22 97 08/26/17 22:00 100 08/26/17 21:00 102 08/26/17 20:36 99.5 93 18 146/72 (96) 95 08/26/17 20:36 101 08/26/17 12:40 97 Room Air I/O 08/26/17 08/26/17 08/26/17 08/27/17 08/27/17 08/27/17 07:00 15:00 23:00 07:00 15:00 23:00 Intake Total 300 ml Output Total 900 ml Balance -600 ml Intake Oral 300 ml Output Urine Total 900 ml # Voids 3 Physical Exam GENERAL: SKIN: Warm and dry. HEAD: Normocephalic. EYES: No scleral icterus. No injection or drainage. NECK: Supple, trachea midline. No JVD or lymphadenopathy. CARDIOVASCULAR: Regular rate and rhythm without murmurs, gallops, or rubs. RESPIRATORY: Breath sounds equal bilaterally. No accessory muscle use. GASTROINTESTINAL: Abdomen soft, non-tender, nondistended. MUSCULOSKELETAL: No cyanosis, or edema. BACK: Nontender without obvious deformity. No CVA tenderness. R groin ecchymosis, no hematoma Laboratory Laboratory Tests Test 08/26/17 22:37 08/27/17 03:57 Total Creatine Kinase 58 U/L 49 U/L Troponin I 0.74 NG/ML 0.66 NG/ML White Blood Count 15.3 TH/MM3 Red Blood Count 3.26 MIL/MM3 Hemoglobin 9.4 GM/DL Hematocrit 28.7 % Mean Corpuscular Volume 88.0 FL Mean Corpuscular Hemoglobin 28.9 PG Mean Corpuscular Hemoglobin Concent 32.8 % Red Cell Distribution Width 13.8 % Platelet Count 245 TH/MM3 Mean Platelet Volume 8.7 FL Neutrophils (%) (Auto) 85.6 % Lymphocytes (%) (Auto) 8.5 % Monocytes (%) (Auto) 5.8 % Eosinophils (%) (Auto) 0.0 % Basophils (%) (Auto) 0.1 % Neutrophils # (Auto) 13.1 TH/MM3 Lymphocytes # (Auto) 1.3 TH/MM3 Monocytes # (Auto) 0.9 TH/MM3 Eosinophils # (Auto) 0.0 TH/MM3 Basophils # (Auto) 0.0 TH/MM3 CBC Comment DIFF FINAL Differential Comment Blood Urea Nitrogen 28 MG/DL Creatinine 0.88 MG/DL Random Glucose 133 MG/DL Calcium Level 8.6 MG/DL Sodium Level 135 MEQ/L Potassium Level 4.1 MEQ/L Chloride Level 100 MEQ/L Carbon Dioxide Level 25.6 MEQ/L Anion Gap 9 MEQ/L Estimat Glomerular Filtration Rate 63 ML/MIN Triglycerides Level 102 MG/DL Cholesterol Level 179 MG/DL LDL Cholesterol 109 MG/DL HDL Cholesterol 49.3 MG/DL Cholesterol/HDL Ratio 3.63 RATIO Assessment and Plan Assessment and Plan LHC - 3 Vz CAD. JON-LAD patent. SVG-OM1 occluded. PCI ELGIN distal LM/ proximal LCx bifurcation. asa plavix bb statin DC home 2d echo in office Minor Lucas MD Aug 27, 2017 08:11
[2017-08-27] MEDS: RESP: ALBUTEROL 2.5 MG/IPRATROPIUM 0.5 MG NEB (SCH) INH ×2 (08:13→14:22)
[2017-08-27] MEDS: INSULIN ASPART SUPPLEMENTAL SCALE SQ SCH ×2 (08:22→12:34)
[2017-08-27] MEDS ORDERED: METOPROLOL TARTRATE 25 MG TAB PO SCH (09:00)
[2017-08-27] MEDS ORDERED: CLOPIDOGREL 75 MG TAB PO SCH (09:00)
[2017-08-27] MEDS ORDERED: ASPIRIN EC 81 MG TABEC PO SCH (09:00)
[2017-08-27] MEDS: MILNACIPRAN 100 MG TAB PO SCH (09:37)
[2017-08-27] MEDS: GABAPENTIN 100 MG CAP PO SCH (09:37)
[2017-08-27] MEDS: RAMIPRIL 5 MG CAP PO SCH (09:37)
[2017-08-27] MEDS: NITROFURANTOIN MONOHYD MACROCR 100 MG CAP PO SCH (09:38)
[2017-08-27] MEDS: MELOXICAM 7.5 MG TAB PO SCH (09:38)
[2017-08-27] MEDS: ACETAMINOPHEN/HYDROcodone 325 MG/10 MG TAB PO SCH ×2 (09:39→12:59)
[2017-08-27] MEDS: FLUTICASONE PROPIONATE 50 MCG/ACT 16 GM NASAL SPRAY EACH NARE SCH (09:39)
[2017-08-27] MEDS: SODIUM CHLORIDE 0.9% FLUSH 10 ML FLUSH IV FLUSH SCH (09:40)
--- NOTE | 2017-08-27 13:24 | HHI.PR ---
Subjective Remarks Pt states that on arrival to the hospital she had chest pain and pressure. Pt had associated SOB with diaphoresis. Pt denies n/v. Pt states that she had NO c/o wheezing, fever, or chills proceeding her admission. Pt currently denies sob or wheezing. Pt denies chest pain or palpitations. Pt is eager for discharge to home. Pt states that she has a h/o vertigo which usually responds to antivert. Pt states that she had antivert for dizziness this AM which has improved. Objective Vitals Vital Signs Date Time Temp Pulse Resp B/P (MAP) Pulse Ox O2 Delivery O2 Flow Rate FiO2 08/27/17 12:00 74 08/27/17 11:00 104 08/27/17 11:00 97.3 102 16 105/61 (76) 95 08/27/17 10:00 112 08/27/17 09:00 110 08/27/17 08:15 95 21 08/27/17 08:00 100 08/27/17 07:21 97.6 90 16 128/73 (91) 95 08/27/17 07:00 96 08/27/17 06:00 94 08/27/17 05:51 97.7 90 16 143/62 (89) 94 08/27/17 05:00 94 08/27/17 04:00 92 08/27/17 03:12 90 08/27/17 02:00 86 08/27/17 01:00 78 08/27/17 00:00 84 08/26/17 23:00 98.7 97 16 126/67 (86) 96 08/26/17 23:00 96 08/26/17 22:22 97 08/26/17 22:00 100 08/26/17 21:00 102 08/26/17 20:36 99.5 93 18 146/72 (96) 95 08/26/17 20:36 101 Result Diagram: 08/27/17 0357 08/27/17 0357 Objective Remarks GENERAL: This is a well-nourished, well-developed patient, in no apparent distress. CARDIOVASCULAR: Regular rate and rhythm without murmurs, gallops, or rubs. RESPIRATORY: Clear to auscultation. Breath sounds equal bilaterally. No wheezes , rales, or rhonchi. GASTROINTESTINAL: Abdomen soft, non-tender, nondistended. Normal active bowel sounds MUSCULOSKELETAL: Extremities without clubbing, cyanosis, or edema. NEURO: Alert & Oriented x4 to person, place, time, situation. Moves all ext x4 A/P Problem List: (1) CAD (coronary artery disease) ICD Codes: I25.10 - Atherosclerotic heart disease of [place] coronary artery without angina pectoris Status: Acute Plan: - Pt has h/o CABG - Pt admitted with c/o chest pain. Troponins were elevated: 0.29, 0.51, 0.74, 0.66 - pt transferred from to [facility] - Pt underwent LHC with Dr. Minor Lucas (08/27) - ELGIN placed at left main artery - ELGIN placed at left circumflex artery - Case d/w Dr. Lucas (08/27/17) - Pt cleared for discharge to home with HHC and home PT - Pt to f/u with Dr. Lucas in one week - ASA, plavix, statin, meotoprolol, ramipirl - see discharge orders (2) COPD (chronic obstructive pulmonary disease) ICD Codes: J44.9 - Chronic obstructive pulmonary disease, unspecified Status: Chronic Plan: - Pt hypoxic upon admission - Pt currently stable on RA - Pt seen by Pulmonary Medicine, Dr. Gasca. - Pt denies SOB/wheezing - CTA chest (08/24/17) --> changes c/w emphysema - will discharge to home on brief prednisone taper - albuterol/atrovent nebules q6h prn SOB/Wheezing - Case mgmt to arrange HHC - f/u with PCP in 1 week - f/u with Dr. Gasca in 4 weeks - Pt will need outpt PFTs through Dr. Gasca's office. (3) Dizziness ICD Codes: R42 - Dizziness and giddiness Status: Chronic Plan: - pt has a h/o vertigo - pt takes antivert prn, received this AM - Pt able to ambulate with PT - will request HHC and home PT Problem Qualifiers (1) CAD (coronary artery disease): (2) COPD (chronic obstructive pulmonary disease): Milad Schwartz DO Aug 27, 2017 13:24
--- NOTE | 2017-08-27 13:25 | HHI.FF ---
Face to Face Verification Diagnosis: (1) CAD (coronary artery disease) (2) COPD (chronic obstructive pulmonary disease) (3) Dizziness Physical Therapy Order: Evaluate and Treat, Improve ambulation, Strength and gait training Home Health Nursing Order: Medical education Signs/symptoms of disease process Medication education-adverse effect Nursing assessment with vital signs I have seen patient Chacha Sun on 08/27/17. My clinical findings support the need for the requested home health care services because: Med compliance is questionable Need for psychosocial assistance I certify that my clinical findings support that this patient is homebound because: Unsafe to leave home unassisted Need for psychosocial assistance Unable to use public transportation Milad Schwartz DO Aug 27, 2017 13:25
[2017-08-27] MEDS ORDERED: LIPI10TA PO (13:35)
[2017-08-27] MEDS ORDERED: ECASA81 PO (13:35)
[2017-08-27] MEDS ORDERED: PRED20 PO (13:35)
[2017-08-27] MEDS ORDERED: ALBU0.08 NEB (13:35)
[2017-08-27] MEDS ORDERED: IPRA0.02 NEB (13:35)
[2017-08-27] MEDS ORDERED: METO25TA3 PO (13:35)
[2017-08-27] MEDS ORDERED: PLAV75TA29 PO (13:35)
[2017-08-27] MEDS ORDERED: NEBULIZER1 MI1 (13:37)
--- NOTE | 2017-08-27 13:41 | HHI.DCPOC ---
Discharge Care Plan Diagnosis: (1) COPD (chronic obstructive pulmonary disease) (2) Dizziness (3) CAD (coronary artery disease) Goals to Promote Your Health * To prevent worsening of your condition and complications * To maintain your health at the optimal level Directions to Meet Your Goals Take your medications as prescribed Follow your dietary instruction Follow activity as directed Keep your appointments as scheduled Take your immunizations and boosters as scheduled If your symptoms worsen call your PCP, if no PCP go to Urgent Care Center or Emergency Room Smoking is Dangerous to Your Health. Avoid second hand smoke Call the 24-hour hour crisis hotline for domestic abuse at Milad Schwartz DO Aug 27, 2017 13:41
--- NOTE | 2017-08-27 14:27 | EKG ---
Date Performed: 08/27/2017 Time Performed: 05:43:58 PTAGE: 76 years EKG: Sinus rhythm Left axis deviation Lateral ST changes are nonspecific Pattern consistent with pulmonary disease Bor derline ECG PREVIOUS TRACING : 08/26/2017 13.06 DOCTOR: Javier Wylie Interpretating Date/Time 08/27/2017 14:26:08
--- NOTE | 2017-08-27 14:27 | EKG ---
Date Performed: 08/26/2017 Time Performed: 13:06:48 PTAGE: 76 years EKG: Sinus arrhythmia. Leftward axis ST junctional depression is nonspecific Pattern consistent with pulmonary disease Borderline ECG PREVIOUS TRACING : 08/26/2017 06.05 DOCTOR: Javier Wylie Interpretating Date/Time 08/27/2017 14:25:55
--- NOTE | 2017-08-29 14:51 | ECHRPT ---
Indication: Chest pain, unspecified CONCLUSIONS The left ventricular systolic function is low normal with an estimated ejection fraction in the rang e of 50- 55%. Wall thickness is measured at the upper limits of normal. Normal left ventricular size. The left atrial size is mildly dilated. [id number] mitral valve regurgitation. Trace aortic valve regurgitation. There is trace tricuspid valve regurgitation. The estimated pulmonary arterial pressure is 28.3 mmHg. BP: 128 / 73 HR: 90 Rhythm: Sinus MEASUREMENTS (Male / Female) Normal Values Technical Quality:Good 2D ECHO LV Diastolic Diameter PLAX 4.9 cm 4.2 - 5.9 / 3.9 - 5.3 cm LV Systolic Diameter PLAX 3.8 cm IVS Diastolic Thickness 1.0 cm 0.6 - 1.0 / 0.6 - 0.9 cm LVPW Diastolic Thickness 1.0 cm 0.6 - 1.0 / 0.6 - 0.9 cm LV Relative Wall Thickness 0.4 LVOT Diameter 2.0 cm M-MODE Aortic Root Diameter MM 3.2 cm LA Systolic Diameter MM 4.0 cm LA Ao Ratio MM 1.3 AV Cusp Separation MM 1.8 cm DOPPLER AV Peak Velocity 138.0 cm/s AV Peak Gradient 7.6 mmHg AI Peak Velocity 340.0 cm/s AI Peak Gradient 46.2 mmHg AI Pressure Half Time 395.5 ms LVOT Peak Velocity 103.0 cm/s LVOT Peak Gradient 4.2 mmHg AV Area Cont Eq pk 2.3 cm MR Peak Velocity 361.0 cm/s MR Peak Gradient 52.1 mmHg Mitral E Point Velocity 70.1 cm/s Mitral A Point Velocity 114.0 cm/s Mitral E to A Ratio 0.6 LV E' Lateral Velocity 9.2 cm/s Mitral E to LV E' Lateral Ratio 7.7 LV E' Septal Velocity 5.9 cm/s Mitral E to LV E' Septal Ratio 11.8 TR Peak Velocity 214.0 cm/s TR Peak Gradient 18.3 mmHg Right Atrial Pressure 10.0 mmHg Pulmonary Artery Systolic Pressu 28.3 mmHg Right Ventricular Systolic Press 28.3 mmHg PV Peak Velocity 95.0 cm/s PV Peak Gradient 3.6 mmHg FINDINGS LEFT VENTRICLE The left ventricular systolic function is low normal with an estimated ejection fraction in the rang e of 50- 55%. Wall thickness is measured at the upper limits of normal. Normal left ventricular size. RIGHT VENTRICLE Normal right ventricular size and systolic function. LEFT ATRIUM The left atrial size is mildly dilated. RIGHT ATRIUM The right atrial size is normal. ATRIAL SEPTUM Normal atrial septal thickness without atrial level shunting by limited color doppler interrogation. AORTA The aortic root and proximal ascending aorta are normal in size on limited imaging. MITRAL VALVE [id number] mitral valve regurgitation. AORTIC VALVE Trileaflet aortic valve. Trace aortic valve regurgitation. TRICUSPID VALVE There is trace tricuspid valve regurgitation. The estimated pulmonary arterial pressure is 28.3 mmHg. PULMONARY VALVE No pulmonary valve regurgitation or stenosis. VESSELS The inferior vena cava is normal in size. PERICARDIUM No pericardial effusion. Minor Lucas MD, FACC (Electronically Signed) Final Date:29 August 2017 14:49
== END 2017-08-27 17:30 | disposition home health service (06) | DRG 246 ==
LOC: PHEDDLT 10:52 → PH3A 11:02 → OBSVTOIN 08-25 07:14 → HCIS 08-26 13:44 → HCPC 08-26 20:19
PROVIDERS: ADMIT Hospitalist; ATTEND Hospitalist
PROC: 4A023N7 Measurement of Cardiac Sampling and Pressure, Left Heart, Percutaneous Approach (ICD-10-PCS; 2017-08-26)
PROC: B2111ZZ Fluoroscopy of Multiple Coronary Arteries using Low Osmolar Contrast (ICD-10-PCS; 2017-08-26)
PROC: B2131ZZ Fluoroscopy of Multiple Coronary Artery Bypass Grafts using Low Osmolar Contrast (ICD-10-PCS; 2017-08-26)
PROC: 0271356 Dilation of Coronary Artery, Two Arteries, Bifurcation, with Two Drug-eluting Intraluminal Devices, Percutaneous Approach (ICD-10-PCS; principal; 2017-08-26 09:45)
DX: I21.4 Non-ST elevation (NSTEMI) myocardial infarction (principal); J96.01 Acute respiratory failure with hypoxia; J44.1 Chronic obstructive pulmonary disease with (acute) exacerbation; J98.11 Atelectasis; I25.810 Atherosclerosis of coronary artery bypass graft(s) without angina pectoris; I47.1 Supraventricular tachycardia; I50.9 Heart failure, unspecified; I11.0 Hypertensive heart disease with heart failure; E11.9 Type 2 diabetes mellitus without complications; I25.10 Atherosclerotic heart disease of native coronary artery without angina pectoris; M79.7 Fibromyalgia; F41.9 Anxiety disorder, unspecified; E78.5 Hyperlipidemia, unspecified; E03.9 Hypothyroidism, unspecified; R42 Dizziness and giddiness; Z95.1 Presence of aortocoronary bypass graft; Z82.49 Family history of ischemic heart disease and other diseases of the circulatory system; Z79.84 Long term (current) use of oral hypoglycemic drugs
CPT/HCPCS: 71045; 71275; 80048; 80061; 81001; 82550; 82552; 82948; 83880; 84484; 85025; 85379; 85610; 85730; 92928; 93005; 93306; 93458; 94640; 94664; 96372; 96374; 96376; 99152; 99153; C1725; C1769; C1874; C1887; C1893; G0378; G8987-GP; G8988-GP; J1100; J1644; J1650; J1815; J2250; J2920; J3010; Q9967